=== PATIENT | male | born 1990 | race Two or more races ===

== ENCOUNTER 2019-05-12 16:50 | Emergency (ER) | payer BC ==
[2019-05-12] MEDS ORDERED: Sodium Chloride 0.9% 1,000 ML IV SCH (17:00)
--- NOTE | 2019-05-12 17:04 | EDM.PDOC ---
ED HPI GENERAL MEDICAL PROBLEM - General Chief Complaint: Abdominal Pain Stated Complaint: MED [facility] Time Seen by Provider: 05/12/19 17:01 Source of Information: Reports: Patient History Limitations: Reports: No Limitations - History of Present Illness INITIAL COMMENTS - FREE TEXT/NARRATIVE: pt arrived with a history of standing up and feeling very dizzy. His heart was racing. He states he has not been drinking alot of fluid. He has not been vomiting. He has been having bms. He denies abdomanal pain. f Onset: Today, Sudden Duration: Hour(s):, Other (pt has continued to feel like his heart is racing. ) Location: Reports: Chest, Other (pt felt dizzy. ) Associated Symptoms: Reports: Weakness, Other ( dizziness. ) - Related Data Allergies Allergy/AdvReac Type Severity Reaction Status Date / Time No Known Allergies Allergy Verified 05/12/19 16:59 Home Meds: Home Meds . [Unable to Verify Home Med List] 05/12/19 [History] Past Medical History - Past Surgical History GI Surgical History: Reports: Appendectomy Social & Family History - Tobacco Use Smoking Status *Q: Never Smoker - Caffeine Use Caffeine Use: Reports: Soda - Recreational Drug Use Recreational Drug Use: No ED ROS GENERAL - Review of Systems Review Of Systems: See Below Constitutional: Reports: Malaise, Weakness, Other (pt has not been putting fluids in. ) HEENT: Reports: No Symptoms Respiratory: Reports: No Symptoms Cardiovascular: Reports: No Symptoms Endocrine: Reports: No Symptoms GI/Abdominal: Reports: No Symptoms Musculoskeletal: Reports: No Symptoms Skin: Reports: No Symptoms ED EXAM, GI/ABD - Physical Exam Exam: See Below Text/Narrative:: pt had a appendectomy 1 week ago at [facility]. He has been doing well except not drinking enough fluids. Exam Limited By: No Limitations General Appearance: Alert, Mild Distress, Other (pupils are equal and reactive. ) Ears: Normal TMs Nose: Normal Inspection Throat/Mouth: Normal Inspection Head: Atraumatic Neck: Normal Inspection Respiratory/Chest: No Respiratory Distress Cardiovascular: Regular Rate, Rhythm, Tachycardia, Other (rate 104) GI/Abdominal Exam: Soft, Non-Tender, Other (pt does not appear distended. ) (Male) Exam: Deferred Rectal (Males) Exam: Deferred Back Exam: Normal Inspection Extremities: Normal Inspection Neurological: Alert, Oriented, Normal Cognition Psychiatric: Normal Affect Course - Vital Signs Last Recorded V/S: Last Vital Signs Temp 36.7 C 05/12/19 16:55 Pulse 105 H 05/12/19 16:55 Resp 20 05/12/19 16:55 BP 149/96 H 05/12/19 16:55 Pulse Ox 98 05/12/19 16:55 - Orders/Labs/Meds Labs: Laboratory Tests 05/12/19 05/12/19 05/12/19 Range/Units 17:07 17:08 17:08 WBC 9.3 (4.5-11.0) K/uL RBC 5.37 (4.30-5.90) M/uL Hgb 15.4 H (12.0-15.0) g/dL Hct 46.1 (40.0-54.0) % MCV 86 (80-98) fL MCH 29 (27-31) pg MCHC 33 (32-36) % Plt Count 407 H (150-400) K/uL Neut % (Auto) 45 (36-66) % Lymph % (Auto) 46 H (24-44) % [place] % (Auto) 7 H (2-6) % Eos % (Auto) 2 (2-4) % Baso % (Auto) 0 (0-1) % D-Dimer, Quantitative (0.0-400.0) ng/mL Sodium 142 (140-148) mmol/L Potassium 3.2 L (3.6-5.2) mmol/L Chloride 102 (100-108) mmol/L Carbon Dioxide 27 (21-32) mmol/L Anion Gap 16.2 H (5.0-14.0) mmol/L BUN 14 (7-18) mg/dL Creatinine 0.9 (0.8-1.3) mg/dL Est Cr Clr Drug Dosing 108.19 mL/min Estimated GFR (MDRD) > 60 (>60) Glucose 106 (74-106) mg/dL Calcium 8.8 (8.5-10.1) mg/dL Total Bilirubin 0.7 (0.2-1.0) mg/dL AST 21 (15-37) U/L ALT 69 (12-78) U/L Alkaline Phosphatase 88 (46-116) U/L C-Reactive Protein (0.0-0.3) mg/dL Total Protein 8.2 (6.4-8.2) g/dL Albumin 4.0 (3.4-5.0) g/dL Globulin 4.2 H (2.3-3.5) g/dL Albumin/Globulin Ratio 1.0 L (1.2-2.2) Urine Color Yellow (YELLOW) Urine Appearance Clear (CLEAR) Urine pH 6.0 (5.0-8.0) Ur Specific [place] >= 1.030 (1.008-1.030) Urine Protein Negative (NEGATIVE) mg/dL Urine Glucose (UA) Negative (NEGATIVE) mg/dL Urine Ketones Negative (NEGATIVE) mg/dL Urine Occult Blood Negative (NEGATIVE) Urine Nitrite Negative (NEGATIVE) Urine Bilirubin Negative (NEGATIVE) Urine Urobilinogen 0.2 (0.2-1.0) EU/dL Ur Leukocyte Esterase Negative (NEGATIVE) Urine RBC 0-5 (0-5) Urine WBC Not seen (0-5) Ur Epithelial Cells Not seen Amorphous Sediment Many Urine Bacteria Not seen Urine Mucus Not seen 05/12/19 05/12/19 Range/Units 17:08 17:37 WBC (4.5-11.0) K/uL RBC (4.30-5.90) M/uL Hgb (12.0-15.0) g/dL Hct (40.0-54.0) % MCV (80-98) fL MCH (27-31) pg MCHC (32-36) % Plt Count (150-400) K/uL Neut % (Auto) (36-66) % Lymph % (Auto) (24-44) % [place] % (Auto) (2-6) % Eos % (Auto) (2-4) % Baso % (Auto) (0-1) % D-Dimer, Quantitative < 100 (0.0-400.0) ng/mL Sodium (140-148) mmol/L Potassium (3.6-5.2) mmol/L Chloride (100-108) mmol/L Carbon Dioxide (21-32) mmol/L Anion Gap (5.0-14.0) mmol/L BUN (7-18) mg/dL Creatinine (0.8-1.3) mg/dL Est Cr Clr Drug Dosing mL/min Estimated GFR (MDRD) (>60) Glucose (74-106) mg/dL Calcium (8.5-10.1) mg/dL Total Bilirubin (0.2-1.0) mg/dL AST (15-37) U/L ALT (12-78) U/L Alkaline Phosphatase (46-116) U/L C-Reactive Protein 0.24 (0.0-0.3) mg/dL Total Protein (6.4-8.2) g/dL Albumin (3.4-5.0) g/dL Globulin (2.3-3.5) g/dL Albumin/Globulin Ratio (1.2-2.2) Urine Color (YELLOW) Urine Appearance (CLEAR) Urine pH (5.0-8.0) Ur Specific [place] (1.008-1.030) Urine Protein (NEGATIVE) mg/dL Urine Glucose (UA) (NEGATIVE) mg/dL Urine Ketones (NEGATIVE) mg/dL Urine Occult Blood (NEGATIVE) Urine Nitrite (NEGATIVE) Urine Bilirubin (NEGATIVE) Urine Urobilinogen (0.2-1.0) EU/dL Ur Leukocyte Esterase (NEGATIVE) Urine RBC (0-5) Urine WBC (0-5) Ur Epithelial Cells Amorphous Sediment Urine Bacteria Urine Mucus Meds: Medications Discontinued Medications Generic Name Dose Route Start Last Admin Trade Name Freq PRN Reason Stop Dose Admin Sodium Chloride 1,000 mls @ 999 mls/hr 05/12/19 17:00 05/12/19 17:16 Normal Saline IV 999 mls/hr ASDIRECTED EDGAR Administration - Re-Assessments/Exams Free Text/Narrative Re-Assessment/Exam: 05/12/19 17:59 pt has labs which look like he is dehydrated. Will give him 2 liters of fluid He has a normal wbc and a normal ddimer. Departure - Departure Time of Disposition: 18:40 Disposition: Home, Self-Care 01 Condition: Fair Clinical Impression: Dehydration, Status post appendectomy - Discharge Information Instructions: Dehydration, Adult, [id number], Laparoscopic Appendectomy, Adult, Care After, [id number] Referrals: PCP,None [Primary Care Provider] - Forms: ED Department Discharge Care Plan Goals: push fluids, encourage ambulation. Sepsis Event Note - Evaluation Sepsis Screening Result: No Definite Risk - Focused Exam Date Exam was Performed: 05/13/19 Time Exam was Performed: 08:21
== END 2019-05-12 18:48 | disposition home or self-care (01) ==
LOC: JP.ED 16:50
DX: E86.0 Dehydration (principal); Z90.49 Acquired absence of other specified parts of digestive tract
CPT/HCPCS: 36415; 80053; 81001; 85025; 85379; 86140; 96360; 99285; J7030

== ENCOUNTER 2019-06-03 16:15 | Emergency (ER) | payer BC ==
[2019-06-03] MEDS ORDERED: Ketorolac 60 MG/2 ML SDV IM ONE (17:14)
[2019-06-03] MEDS ORDERED: Ondansetron 4 MG Tab.DIS PO ONE (17:14)
--- NOTE | 2019-06-03 17:17 | EDM.PDOC ---
ED HPI GENERAL MEDICAL PROBLEM - General Chief Complaint: Abdominal Pain Stated Complaint: ABD PAIN ON LT SIDE Time Seen by Provider: 06/03/19 17:11 Source of Information: Reports: Patient, RN Notes Reviewed History Limitations: Reports: No Limitations - History of Present Illness INITIAL COMMENTS - FREE TEXT/NARRATIVE: -28-year-old gentleman presents emergency department today complaint of abdominal pain, he states his been having abdominal pain for the last 24 hours he has had some problems with constipation he recently had his appendix out about a month ago did use narcotic medication but does not take them anymore. He feels nauseated complains of a headache no fevers no shortness of breath or chest pain - Related Data Allergies Allergy/AdvReac Type Severity Reaction Status Date / Time No Known Allergies Allergy Verified 06/03/19 16:31 Home Meds: Home Meds NK [No Known Home Meds] 06/03/19 [History] Past Medical History - Past Surgical History Head Surgeries/Procedures: Reports: None GI Surgical History: Reports: Appendectomy Dermatological Surgical History: Reports: None Social & Family History - Tobacco Use Smoking Status *Q: Never Smoker Second Hand Smoke Exposure: No - Caffeine Use Caffeine Use: Reports: None - Recreational Drug Use Recreational Drug Use: No ED ROS GENERAL - Review of Systems Review Of Systems: See Below Constitutional: Denies: Fever HEENT: Reports: No Symptoms Respiratory: Reports: No Symptoms Cardiovascular: Reports: No Symptoms GI/Abdominal: Reports: Abdominal Pain, Constipation, Flatus, Nausea ED EXAM, GI/ABD - Physical Exam Exam: See Below Exam Limited By: No Limitations General Appearance: Alert, WD/WN, No Apparent Distress Respiratory/Chest: No Respiratory Distress, Lungs Clear, Normal Breath Sounds, No Accessory Muscle Use, Chest Non-Tender Cardiovascular: Regular Rate, Rhythm, No Murmur GI/Abdominal Exam: Soft, Non-Tender Course - Vital Signs Last Recorded V/S: Last Vital Signs Temp 97.8 F 06/03/19 16:55 Pulse 82 06/03/19 16:55 Resp 16 06/03/19 16:55 BP 132/81 06/03/19 16:55 Pulse Ox 97 06/03/19 16:55 - Orders/Labs/Meds Orders: Active Orders 24 hr Category Date Time Status Abdomen 1V Upright [CR] Stat Exams 06/03/19 17:15 Taken Meds: Medications Discontinued Medications Generic Name Dose Route Start Last Admin Trade Name Cleve PRN Reason Stop Dose Admin Ketorolac Tromethamine 60 mg 06/03/19 17:14 06/03/19 17:49 Toradol IM 06/03/19 17:15 60 mg ONETIME ONE Administration Ondansetron HCl 4 mg 06/03/19 17:14 06/03/19 17:49 Zofran Odt PO 06/03/19 17:15 4 mg ONETIME ONE Administration Departure - Departure Time of Disposition: 18:11 Disposition: Home, Self-Care 01 Condition: Fair Clinical Impression: Functional constipation - Discharge Information Instructions: Constipation, Adult Referrals: PCP,None [Primary Care Provider] - Forms: ED Department Discharge, ED Return to Work/School Form Additional Instructions: Try the MiraLAX at home for the constipation,, please followup with your primary care provider in 3-5 days if not better, please call return to the emergency department with worsening of symptoms. Sepsis Event Note - Evaluation Sepsis Screening Result: No Definite Risk - Focused Exam Vital Signs: Vital Signs Temp Pulse Resp BP Pulse Ox 06/03/19 16:55 97.8 F 82 16 132/81 97 06/03/19 16:46 97.8 F 82 16 132/81 97 Date Exam was Performed: 06/03/19 Time Exam was Performed: 18:09 - My Orders Last 24 Hours: My Active Orders 06/03/19 17:15 Abdomen 1V Upright [CR] Stat - Assessment/Plan Last 24 Hours: My Active Orders 06/03/19 17:15 Abdomen 1V Upright [CR] Stat Plan: Assessment Acuity = acute Site and laterality = functional constipation Etiology = slow transit time Manifestations = none Location of injury = Home Lab values = x-ray does show moderate amount of stool in the right lower quadrant Plan Provided Toradol for pain control discussed constipation issue he is going to try the MiraLAX colonoscopy prep at home This note was dictated using [employer]ia voice recognition software please call with any questions on syntax or grammar.
--- NOTE | 2019-06-06 08:44 | CR ---
Abdomen 1V Upright CLINICAL HISTORY: Abdominal pain FINDINGS: No free air is identified. Small intestinal configuration is nonacute. Gas and feces is seen throughout the colon. IMPRESSION: Nonacute intestinal gas pattern
== END 2019-06-03 18:19 | disposition home or self-care (01) ==
LOC: JP.ED 16:15
DX: K59.04 Chronic idiopathic constipation (principal)
CPT/HCPCS: 74018; 96372; 99284; A9270; J1885

== ENCOUNTER 2021-07-17 01:39 | Emergency (ER) | payer BC ==
[2021-07-17] MEDS ORDERED: Ketorolac 30 MG/ML SDV IM ONE (02:12)
[2021-07-17] MEDS ORDERED: Cyclobenzaprine 10 MG Tab PO ONE (03:27)
== END 2021-07-17 04:25 | disposition home or self-care (01) ==
LOC: JP.ED 01:39
DX: M54.50 Low back pain, unspecified (principal); R19.09 Other intra-abdominal and pelvic swelling, mass and lump; D72.820 Lymphocytosis (symptomatic)
CPT/HCPCS: 36415; 74176; 80053; 81001; 85025; 96372; 99283; 99284-25; A9270-GY; J1885

== ENCOUNTER 2022-08-15 04:01 | Emergency (ER) | payer BC ==
[2022-08-15 04:57] LABS: BASOPHILS ABSOLUTE AUTO 0.04 K/uL (0.00-0.10); BASOPHILS PERCENT AUTO 0.6 % (0.1-1.3); EOSINOPHILS ABSOLUTE AUTO 0.05 K/uL (0.00-0.40); EOSINOPHILS PERCENT AUTO 0.7 % (0.0-5.4); HEMATOCRIT 42.2 % (38.4-49.7); HEMOGLOBIN 14.7 g/dL (12.9-16.9); IMMATURE GRAN PERCENT AUTO 0.3 % (0.0-0.7); LYMPHOCYTES ABSOLUTE AUTO 3.38 K/uL (0.8-3.3); LYMPHOCYTES PERCENT AUTO 48.1 % (11.4-47.7); MEAN CORPUSCULAR HEMOGLOBIN 29.9 pg (31.6-35.5); MEAN CORPUSCULAR HGB CONC 34.8 g/dL (31.6-35.5); MEAN CORPUSCULAR VOLUME 85.8 fL (81.4-99.0); MONOCYTES ABSOLUTE AUTO 0.49 K/uL (0.20-0.90); NEUTROPHILS ABSOLUTE AUTO 3.04 K/uL (1.0-7.6); NEUTROPHILS PERCENT AUTO 43.3 % (40.0-78.1); PLATELET COUNT,PLT 324 K/uL (130-375); RED BLOOD CELL COUNT 4.92 M/uL (4.14-5.76)
[2022-08-15 05:14] LABS: IMMATURE GRAN ABSOLUTE AUTO 0.02 K/uL (0.00-0.23)
[2022-08-15 05:20] LABS: ALANINE AMINOTRANSFERASE,ALT 104 U/L (12-78); ALBUMIN 3.9 g/dL (3.4-5.0); ALKALINE PHOSPHATASE 109 U/L (46-116); ASPARTATE AMNIOTRANSFERASE,AST 41 U/L (15-37); BILIRUBIN TOTAL 0.3 mg/dL (0.2-1.0); BLOOD UREA NITROGEN,BUN 14 mg/dL (7-18); CARBON DIOXIDE,CO2 28 mmol/L (21-32); CHLORIDE,CL 104 mmol/L (100-108); ESTIMATED GFR 104 mL/min (>60); GLUCOSE RANDOM 112 mg/dL (74-106); LIPASE 118 U/L (73-393); POTASSIUM,K 3.5 mmol/L (3.6-5.2); PROTEIN TOTAL,TP 7.8 g/dL (6.4-8.2); SODIUM,NA 140 mmol/L (140-148)
[2022-08-15 05:22] LABS: ANION GAP 11.5 mmol/L (5.0-14.0)
== END 2022-08-15 06:33 | disposition home or self-care (01) ==
LOC: JP.ED 04:01
DX: K21.00 Gastro-esophageal reflux disease with esophagitis, without bleeding (principal); Z90.49 Acquired absence of other specified parts of digestive tract
CPT/HCPCS: 36415; 80053; 83690; 85025; 99284

== ENCOUNTER 2022-08-18 07:33 | Day surgery (SDC) | payer BC ==
[2022-08-18] MEDS ORDERED: Dextrose 5%-Lactated Ringers 1,000 ML IV SCH (08:30)
[2022-08-18] MEDS ORDERED: Midazolam 1 MG/ML 2 ML SDV ONE (08:32)
[2022-08-18] MEDS ORDERED: Propofol 200 MG/20 ML SDV ONE (08:32)
[2022-08-18] MEDS ORDERED: fentaNYL 50 MCG/ML SDV ONE (08:32)
[2022-08-18] MEDS ORDERED: Glycopyrrolate 0.2 MG/ML 2 ML SDV IVPUSH ONE (09:00)
== END 2022-08-18 11:45 | disposition home or self-care (01) ==
LOC: JP.SDS 07:33
PROVIDERS: ATTEND Surgery
DX: K29.50 Unspecified chronic gastritis without bleeding (principal); B96.81 Helicobacter pylori [H. pylori] as the cause of diseases classified elsewhere; K21.9 Gastro-esophageal reflux disease without esophagitis; R00.2 Palpitations; F41.9 Anxiety disorder, unspecified
CPT/HCPCS: 43239; 87081; 88305; 88341; 88342; 88364; 88365; J2250; J2704; J3010; J3490; J7121

== ENCOUNTER 2024-01-18 15:11 | Emergency (ER) | payer BC ==
[2024-01-18 15:58] LABS: BASOPHILS ABSOLUTE AUTO 0.03 K/uL (0.00-0.10); BASOPHILS PERCENT AUTO 0.6 % (0.1-1.3); EOSINOPHILS ABSOLUTE AUTO 0.07 K/uL (0.00-0.40); EOSINOPHILS PERCENT AUTO 1.5 % (0.0-5.4); HEMATOCRIT 41.2 % (38.4-49.7); HEMOGLOBIN 14.3 g/dL (12.9-16.9); IMMATURE GRAN PERCENT AUTO 0.2 % (0.0-0.7); LYMPHOCYTES ABSOLUTE AUTO 1.66 K/uL (0.8-3.3); LYMPHOCYTES PERCENT AUTO 34.9 % (11.4-47.7); MEAN CORPUSCULAR HEMOGLOBIN 29.9 pg (31.6-35.5); MEAN CORPUSCULAR HGB CONC 34.7 g/dL (31.6-35.5); MEAN CORPUSCULAR VOLUME 86.2 fL (81.4-99.0); MONOCYTES ABSOLUTE AUTO 0.35 K/uL (0.20-0.90); MONOCYTES PERCENT AUTO 7.4 % (3.3-12.6); NEUTROPHILS ABSOLUTE AUTO 2.63 K/uL (1.0-7.6); NEUTROPHILS PERCENT AUTO 55.4 % (40.0-78.1); PLATELET COUNT,PLT 302 K/uL (130-375); RED BLOOD CELL COUNT 4.78 M/uL (4.14-5.76); WHITE BLOOD CELL COUNT,WBC 4.8 K/uL (3.2-11.0)
[2024-01-18 16:01] LABS: IMMATURE GRAN ABSOLUTE AUTO 0.01 K/uL (0.00-0.23)
[2024-01-18] MEDS: Sodium Chloride 0.9% 60 ML IV SCH (16:09)
[2024-01-18] MEDS: Iopamidol 612 MG/ML 100 ML Bottle IV SCH (16:09)
[2024-01-18] MEDS: Sodium Chloride 0.9% 10 ML Syringe FLUSH PRN (16:09)
[2024-01-18 16:15] LABS: ANION GAP 7.7 mmol/L (5.0-14.0); BLOOD UREA NITROGEN,BUN 10 mg/dL (7-18); CALCIUM 9.3 mg/dL (8.5-10.1); CARBON DIOXIDE,CO2 29 mmol/L (21-32); CHLORIDE,CL 103 mmol/L (100-108); CREATININE 0.9 mg/dL (0.8-1.3); EST CRCL DRUG DOSING (CG) 107.32 mL/min; ESTIMATED GFR 117 mL/min (>60); GLUCOSE RANDOM 112 mg/dL (74-106); POTASSIUM,K 3.7 mmol/L (3.6-5.2); SODIUM,NA 140 mmol/L (140-148)
[2024-01-18 16:18] LABS: C-REACTIVE PROTEIN < 0.50 mg/dL (<0.50)
[2024-01-18 16:23] LABS: LACTIC ACID 1.9 mmol/L (0.4-2.0)
== END 2024-01-18 17:48 | disposition home or self-care (01) ==
LOC: JP.ED 15:11
DX: L03.211 Cellulitis of face (principal)
CPT/HCPCS: 36415; 70487; 70487-26; 70491; 70491-26; 80048; 83605; 85025; 86140; 87040; 99283; 99284; J3490; Q9967